=== PATIENT | male | born 1965 | race Caucasian/White ===

== ENCOUNTER 2019-08-07 15:51 | Emergency (ER) | payer OTHER ==
[~2019-08-07] VITALS: Ht 185.4 cm; Wt 106.1 kg
[~2019-08-07 15:51] MED LIST: ATENOLOL 50MG T50 MG; FISH OIL 1,0001 EAC5; IBUPROFEN 600600 M1 PO; MAGNESIUM OXID200 MG; MOBIC15 MG; MULTIVITAMINS1 EAC7; NORCO 5-325 TA1 EACH PO; VITAMIN D-32000 UNIT; VITCB500GO
[2019-08-07] MEDS ORDERED: LISINOPRIL2.5 MG PO (16:06)
[2019-08-07] MEDS ORDERED: SYNTHROID25 MC1 PO (16:07)
[2019-08-07] MEDS ORDERED: GLUCOSAMINE1000 MG PO (16:08)
[2019-08-07] MEDS ORDERED: KEFLEX500 M1 PO (16:50)
[2019-08-07 17:03] VITALS: BP 147/93
== END 2019-08-07 17:03 | disposition home or self-care (01) ==
LOC: M.ERS 15:51
DX: L03.031 Cellulitis of right toe (principal); E03.9 Hypothyroidism, unspecified

== ENCOUNTER → 2019-08-15 | Outpatient (CLI) | payer OTHER ==
[~2019-08-15] MED LIST changes: +GLUCOSAMINE1000 MG PO; +KEFLEX500 M1 PO; +LISINOPRIL2.5 MG PO; +SYNTHROID25 MC1 PO
[2019-08-15 12:48] LABS: ABSOLUTE BASOPHILS 0.1 thou/uL (0.0-0.2); ABSOLUTE EOSINOPHILS 0.1 thou/uL (0.0-0.7); ABSOLUTE LYMPHOCYTES 1.6 thou/uL (0.8-5.3); ABSOLUTE MONOCYTES 0.6 thou/uL (0.0-1.2); ABSOLUTE NEUTROPHILS 3.3 thou/uL (1.6-8.1); EOSINOPHILS 2.3 %; HEMATOCRIT 44.3 % (42.0-52.0); HEMOGLOBIN 15.6 gm/dL (14.0-18.0); LYMPHOCYTES 28.3 %; MCH 29.7 pg (26.0-34.0); MCHC 35.2 g/dL (28.0-37.0); MCV 84.5 fL (80.0-100.0); MONOCYTES 9.9 %; MPV 6.3 fl. (7.2-11.1); NUCLEATED RBCS 0 /100WBC; PLATELET COUNT* 312 thou/uL (150-400); POLYS 58.5 %; RBC 5.23 mil/uL (4.50-6.00); RDW-CV 13.4 % (10.5-14.5); WBC 5.7 thou/uL (4.0-11.0)
[2019-08-15 13:04] LABS: ALBUMIN 4.2 g/dL (3.4-5.0); CREATININE 1.1 mg/dL (0.6-1.3); POTASSIUM 3.9 mmol/L (3.5-5.1); TOTAL BILIRUBIN 0.6 mg/dL (<0.1-1.0); TOTAL PROTEIN 7.8 g/dL (6.4-8.2)
[2019-08-15 13:50] LABS: ESR (SEDRATE) 0 mm/hr (0-20)
== END ==
LOC: M.LAB 11:41 → M.RAD 11:41
PROVIDERS: Internal Medicine
DX: R06.02 Shortness of breath (principal); E03.9 Hypothyroidism, unspecified; I10 Essential (primary) hypertension; L03.031 Cellulitis of right toe; F41.9 Anxiety disorder, unspecified; I70.0 Atherosclerosis of aorta; M47.814 Spondylosis without myelopathy or radiculopathy, thoracic region

== ENCOUNTER 2019-10-18 19:34 | Emergency (ER) | payer OTHER ==
[~2019-10-18] VITALS: Ht 182.9 cm; Wt 102.1 kg
[2019-10-18] MEDS ORDERED: ASPIRIN PO (19:43)
[2019-10-18] MEDS ORDERED: CLINDAMYCIN PO (19:43)
[2019-10-18 21:09] VITALS: BP 168/100
== END 2019-10-18 21:11 | disposition home or self-care (01) ==
LOC: M.ERS 19:34
DX: R04.0 Epistaxis (principal); E03.9 Hypothyroidism, unspecified

== ENCOUNTER → 2019-10-20 | Outpatient (CLI) | payer OTHER ==
[~2019-10-20] MED LIST changes: +ASPIRIN PO; +CLINDAMYCIN PO
== END ==
LOC: M.ULTRA 09:55
DX: M19.072 Primary osteoarthritis, left ankle and foot (principal); M79.605 Pain in left leg; M79.89 Other specified soft tissue disorders

== ENCOUNTER → 2019-11-03 | Outpatient (CLI) | payer OTHER | LOC: M.ULTRA 16:00 | DX: R59.9 Enlarged lymph nodes, unspecified (principal) ==

== ENCOUNTER 2020-07-17 19:00 | Emergency (ER) | payer OTHER ==
[~2020-07-17] VITALS: Ht 182.9 cm; Wt 108.9 kg
--- NOTE | ~2020-07-17 | PROC ---
[facility] [address] [place] [address] PROCEDURE REPORT Name: MANOLO VALDES Room: [facility] Nadia#: [id number] Admission: 07/17/20 Attend Phys: Discharge: 07/17/20 Date of : 61 Report #: [id number] THIS REPORT FOR: //name// cc: Jc Webb MD, David L. MD ~ THIS REPORT FOR: //name// For GI report, please see the Provation report in Perceptive 7 content. By: [id number] Records Staff JONATHAN /RANDY
[2020-07-17 19:34] LABS: ABSOLUTE BASOPHILS 0.1 thou/uL (0.0-0.2); ABSOLUTE EOSINOPHILS 0.1 thou/uL (0.0-0.7); ABSOLUTE LYMPHOCYTES 1.6 thou/uL (0.8-5.3); ABSOLUTE MONOCYTES 0.4 thou/uL (0.0-1.2); ABSOLUTE NEUTROPHILS 3.1 thou/uL (1.6-8.1); BASOPHILS 1.1 %; EOSINOPHILS 2.3 %; HEMATOCRIT 42.4 % (42.0-52.0); HEMOGLOBIN 14.7 gm/dL (14.0-18.0); LYMPHOCYTES 29.9 %; MCH 29.2 pg (26.0-34.0); MCHC 34.6 g/dL (28.0-37.0); MCV 84.4 fL (80.0-100.0); MONOCYTES 8.3 %; MPV 6.3 fl. (7.2-11.1); NUCLEATED RBCS 0 /100WBC; PLATELET COUNT* 243 thou/uL (150-400); POLYS 58.4 %; RBC 5.02 mil/uL (4.50-6.00); RDW-CV 13.6 % (10.5-14.5); WBC 5.4 thou/uL (4.0-11.0)
[2020-07-17 19:42] LABS: CALCIUM 8.9 mg/dL (8.5-10.1); CREATININE 1.2 mg/dL (0.6-1.3); POTASSIUM 3.5 mmol/L (3.5-5.1)
[2020-07-17 19:43] LABS: INR 1.1; PROTIME 10.9 Seconds (9.20-11.50)
[2020-07-17 19:46] LABS: TOTAL BILIRUBIN 0.4 mg/dL (<0.1-1.0); TOTAL PROTEIN 7.6 g/dL (6.4-8.2)
[2020-07-17 20:14] VITALS: BP 160/94
--- NOTE | 2020-07-19 17:30 | CON ---
[address] [address] CONSULTATION Name: VALDESMANOLO Room: [facility]#: [id number] Admission: 07/17/20 Attend Phys: Discharge: 07/17/20 Date of : 61 Report #: [id number] THIS REPORT FOR: //name// cc: Jc Webb MD, David L. MD ~ THIS REPORT FOR: //name// DATE OF SERVICE: 07/17/2020 HISTORY OF PRESENT ILLNESS: A pleasant 54-year-old gentleman with history of dysphagia and food bolus impaction, presents with another food bolus impaction today. The patient's last EGD was in the month of March. Disimpaction was performed. The patient has been unable to swallow solids or liquids and is spitting saliva at this time. PAST MEDICAL HISTORY: Hypertension. PAST SURGICAL HISTORY: Nonsignificant. FAMILY HISTORY: No family history of colon cancer or Cloud related neoplasia. REVIEW OF SYSTEMS: A comprehensive 10-point review of systems is negative except for what was mentioned in the HPI. PHYSICAL EXAMINATION: GENERAL: The patient appears to be in mild distress secondary to inability to swallow saliva secretions. HEENT: Mucous membranes are moist. There is no congestion. LUNGS: Clear to auscultation bilaterally. CARDIOVASCULAR: Rate and rhythm regular, S1, S2 present. ABDOMEN: Soft. There is no distention, guarding or rigidity. EXTREMITIES: Warm, well perfused. There is no edema. SKIN: Warm and dry. LABORATORY DATA: Hemoglobin 14.7, hematocrit 42.4, platelet count 243, WBC count 5.4. INR 1.1. Sodium 141, potassium 3.5, chloride 104, bicarbonate 27, BUN 10, creatinine 1.2. ASSESSMENT AND PLAN: A pleasant 54-year-old gentleman coming in with food bolus impaction. We will proceed with EGD and make further recommendations based on results of EGD. <ELECTRONICALLY SIGNED> By: Michael Rhodes MD 07/19/201729 00 02Michael Rhodes MD /nt
--- NOTE | 2020-07-20 12:06 | PATH ---
[facility] [address] [place] [address] PATHOLOGY RPT PROCEDURE Name: MANOLO VALDES Room: [facility] Nadia#: [id number] Admission: 07/17/20 Date of : 61 Discharge: 07/17/20 Report #: [id number] Path Case #: [id number] [facility] Accession Number: [id number] . 01 Material submitted: . esophagus - ESOPHAGEAL BIOPSY FOR EOE . 01 Clinical history: . SOMETHING STUCK IN THROAT . 02 Diagnosis: Esophageal biopsy: - Mild chronic esophagitis typical of reflux. See comment. ([place]; 07/20/2020) QMS 07/20/2020 1050 Local . 02 Comment: Eosinophils are difficult to find, averaging less than 1 per high power field and therefore, eosinophilic (allergic) esophagitis is unlikely. ([place]; 07/20/2020) . 02 Electronically signed: . Matt Robison MD, Pathologist NPI- [id number] . 01 Gross description: . The specimen is received in formalin, labeled "Manolo Valdes, esophageal biopsy for eosinophilic esophagitis". Received are two segments of pale park soft tissue ranging in size from 0.2 to 0.5 cm in maximum dimensions. The specimen is submitted entirely in cassette A1. ([facility]; 07/19/2020) QAC/QAC 07/19/2020 1124 Local . 02 Pathologist provided ICD-10: K20.90 . 02 CPT . 446705 Specimen Comment: A courtesy copy of this report has been sent to [phone], [phone] Specimen Comment: [phone], Specimen Comment: Report sent to ,DR ROMERO / DR ALVARES Performed at: [address] [id number] MD Tristen Rdz MD Phone: [phone] Performed at: [address] [address] PATHOLOGY RPT PROCEDURE Name: MANOLO VALDES Room: [facility] ([place], [place])#: [id number] Admission: 07/17/20 Date of : 61 Discharge: 07/17/20 Report #: [id number] Path Case #: [id number] [address] [place] [address] [id number] MD Matt Robison MD Phone: [phone]
== END 2020-07-17 20:14 | disposition still patient (30) ==
LOC: M.ERS 19:00
PROVIDERS: Family Medicine
DX: T18.128A Food in esophagus causing other injury, initial encounter (principal); Z20.828 Contact with and (suspected) exposure to other viral communicable diseases; E03.9 Hypothyroidism, unspecified; X58.XXXA Exposure to other specified factors, initial encounter; Y93.89 Activity, other specified; Y92.89 Other specified places as the place of occurrence of the external cause; Y99.8 Other external cause status